=== PATIENT | female | born 1985 | race Caucasian/White ===

== ENCOUNTER → 2024-09-17 | Outpatient (CLI) | payer OTHER ==
[2024-09-22 11:00] LABS: HPV HIGH RISK BY TMA Detected; HPV SOURCE Cervical
[2024-09-22 13:09] LABS: HPV GENOTYPE 16 BY TMA Not Detected; HPV GENOTYPE 18/45 BY TMA Not Detected; HPVG SOURCE Cervical
== END ==
LOC: LAB SHORT 10:34 → LAB 10:34
PROVIDERS: Physician Assistant
DX: Z01.419 Encounter for gynecological examination (general) (routine) without abnormal findings (principal)
CPT/HCPCS: 87624; 87625; G0123